=== PATIENT | male | born 2000 | race Caucasian/White ===

== ENCOUNTER → 2021-08-03 | Outpatient (CLI) | payer OTHER ==
[2021-08-03 19:54] LABS: URINE APPEARANCE CLEAR; URINE BILIRUBIN NEGATIVE (NEGATIVE); URINE BLOOD NEGATIVE (NEGATIVE); URINE COLOR YELLOW; URINE GLUCOSE NEGATIVE (NEGATIVE); URINE KETONE NEGATIVE (NEGATIVE); URINE LEUKOCYTE ESTERASE NEGATIVE (NEGATIVE); URINE MUCUS PRESENT (NOT PRESENT); URINE NITRATE NEGATIVE (NEGATIVE); URINE PROTEIN(semi-quant) TRACE (NEGATIVE); URINE UROBILINOGEN NORMAL (NORMAL)
[2021-08-03 21:00] LABS: URINE WBC 0-1 /hpf (0-3)
== END ==
LOC: LAB 18:50
PROVIDERS: Nurse Practitioner Family
DX: N45.1 Epididymitis (principal)

== ENCOUNTER → 2022-01-20 | Outpatient (CLI) | payer OTHER ==
[2022-01-20 15:53] LABS: BASO # 0.02 K/mm3 (0.02-0.10); EOS # 0.05 K/mm3 (0.04-0.40); EOS % 0.8 % (0.0-4.0); HEMOGLOBIN 15.4 g/dL (13.5-18.0); LYMPH# 1.73 K/mm3 (1.50-4.00); MEAN CELL VOLUME 86 fl (78-100); MEAN CORPUSCULAR HEMOGLOBIN 30 pg (27-31); MEAN CORPUSCULAR HGB CONC 35 g/dL (33-37); MEAN PLATELET VOLUME 9.4 fl (7.4-10.4); MONO # 0.45 K/mm3 (0.20-0.80); NEU # 3.93 K/mm3 (1.40-6.50); PLATELET COUNT 235 K/mm3 (130-400); RED BLOOD COUNT 5.13 M/mm3 (4.20-5.60); RED CELL DISTRIBUTION WIDTH 12.4 % (11.5-14.5); WHITE BLOOD COUNT 6.2 K/mm3 (4.8-10.8)
[2022-01-20 16:03] LABS: ALBUMIN 4.4 g/dL (3.5-5.0); POTASSIUM 4.2 mmol/L (3.5-5.1); SODIUM 139 mmol/L (136-145)
[2022-01-20 16:04] LABS: CALCIUM 9.4 mg/dL (8.3-10.5)
[2022-01-20 16:05] LABS: GLUCOSE 89 mg/dL (75-110); TOTAL PROTEIN 6.9 g/dL (6.4-8.3)
[2022-01-20 16:06] LABS: CARBON DIOXIDE 24 mmol/L (22-29)
[2022-01-20 16:07] LABS: TOTAL BILIRUBIN 0.8 mg/dL (0.2-1.2)
[2022-01-20 16:11] LABS: AST-SGOT 16 U/L (5-34)
[2022-01-20 16:12] LABS: ALT/SGPT 24 U/L (0-55)
[2022-01-20 17:08] LABS: TROPONIN-I < 0.030 ng/mL (<0.030)
== END ==
LOC: LAB 15:30
PROVIDERS: Family Medicine
DX: Z00.00 Encounter for general adult medical examination without abnormal findings (principal); M25.561 Pain in right knee; E78.5 Hyperlipidemia, unspecified; F41.1 Generalized anxiety disorder; F32.A Depression, unspecified; J45.20 Mild intermittent asthma, uncomplicated; N45.1 Epididymitis

== ENCOUNTER → 2023-06-05 | Outpatient (CLI) | payer OTHER | LOC: RAD 08:52 | DX: M25.561 Pain in right knee (principal); M25.571 Pain in right ankle and joints of right foot; M25.471 Effusion, right ankle ==

== ENCOUNTER → 2023-07-05 | Outpatient (CLI) | payer OTHER | LOC: RAD 12:55 | DX: M25.561 Pain in right knee (principal); R51.9 Headache, unspecified ==

== ENCOUNTER → 2023-09-04 | Outpatient (CLI) | payer OTHER | LOC: LAB 09:25 | DX: E55.9 Vitamin D deficiency, unspecified (principal); R07.9 Chest pain, unspecified ==

== ENCOUNTER → 2024-01-09 | Outpatient (CLI) | payer OTHER | LOC: LAB 10:18 | DX: E55.9 Vitamin D deficiency, unspecified (principal) ==

== ENCOUNTER → 2024-10-24 | Outpatient (CLI) | payer OTHER ==
[2024-10-24 17:15] LABS: URINE WBC 0 /hpf (0-3)
[2024-10-24 17:25] LABS: BASO # 0.02 K/mm3 (0.02-0.10); EOS # 0.11 K/mm3 (0.04-0.40); EOS % 1.2 % (0.0-4.0); HEMATOCRIT 45.3 % (42.0-52.0); HEMOGLOBIN 15.9 g/dL (13.5-18.0); MEAN CELL VOLUME 85 fl (78-100); MEAN CORPUSCULAR HEMOGLOBIN 30 pg (27-31); MEAN CORPUSCULAR HGB CONC 35 g/dL (33-37); MEAN PLATELET VOLUME 9.1 fl (7.4-10.4); MONO # 0.61 K/mm3 (0.20-0.80); NEU # 6.14 K/mm3 (1.40-6.50); PLATELET COUNT 269 K/mm3 (130-400); RED BLOOD COUNT 5.34 M/mm3 (4.20-5.60); WHITE BLOOD COUNT 8.9 K/mm3 (4.8-10.8)
[2024-10-24 17:31] LABS: ALBUMIN 4.5 g/dL (3.5-5.0)
[2024-10-24 17:32] LABS: CALCIUM 9.5 mg/dL (8.3-10.5)
[2024-10-24 17:33] LABS: TOTAL PROTEIN 7.2 g/dL (6.4-8.3)
[2024-10-24 17:35] LABS: TOTAL BILIRUBIN 0.3 mg/dL (0.2-1.2)
[2024-10-24 18:09] LABS: PH-URINE 5.5 (5.0 - 8.0); URINE APPEARANCE CLEAR (CLEAR); URINE BILIRUBIN NEGATIVE (NEGATIVE); URINE BLOOD NEGATIVE (NEGATIVE); URINE COLOR YELLOW (YELLOW); URINE GLUCOSE NEGATIVE (NEGATIVE); URINE KETONE NEGATIVE (NEGATIVE); URINE LEUKOCYTE ESTERASE NEGATIVE (NEGATIVE); URINE NITRATE NEGATIVE (NEGATIVE); URINE PROTEIN(semi-quant) NEGATIVE (NEGATIVE)
[2024-10-24 18:10] LABS: URINE MUCUS PRESENT (NOT PRESENT)
[2024-10-30 14:10] LABS: BAKERS YEAST ALLERGEN COUNT <0.10 kU/L (Class 0); CORN ALLERGEN COUNT <0.10 kU/L (Class 0); EGG WHITE ALLERGEN COUNT <0.10 kU/L (Class 0); MILK ALLERGEN COUNT <0.10 kU/L (Class 0); ORANGE ALLERGEN COUNT <0.10 kU/L (Class 0); PEANUT ALLERGEN COUNT <0.10 kU/L (Class 0); RICE ALLERGEN COUNT <0.10 kU/L (Class 0); SOYBEAN ALLERGEN COUNT <0.10 kU/L (Class 0); STRAWBERRY ALLERGEN COUNT <0.10 kU/L (Class 0); TOMATO ALLERGEN COUNT <0.10 kU/L (Class 0); WHEAT ALLERGEN COUNT <0.10 kU/L (Class 0)
== END ==
LOC: LAB 17:04
PROVIDERS: Nurse Practitioner
DX: E55.9 Vitamin D deficiency, unspecified (principal); R35.0 Frequency of micturition; R10.9 Unspecified abdominal pain